=== PATIENT | male | born 1990 | race Caucasian/White ===

== ENCOUNTER 2016-10-03 19:49 | Emergency (ER) | payer MEDICAID, OTHER, SELFPAY ==
[~2016-10-03] VITALS: Ht 180.3 cm; Wt 113.4 kg
[2016-10-03 19:49] VITALS: BP 174/78
[2016-10-03] MEDS ORDERED: PRED20TA PO (20:42)
[2016-10-03] MEDS ORDERED: BENA25TA9 PO (20:42)
[2016-10-03] MEDS ORDERED: diphenhydrAMINE 25 MG CAP PO ONE (20:45)
[2016-10-03] MEDS ORDERED: predniSONE 20 MG TAB PO ONE (20:45)
== END 2016-10-03 21:08 | disposition home or self-care (01) ==
LOC: M ED 21:04
DX: L25.8 Unspecified contact dermatitis due to other agents (principal); Z87.891 Personal history of nicotine dependence

== ENCOUNTER 2017-03-01 14:56 | Emergency (ER) | payer OTHER, SELFPAY ==
[~2017-03-01] VITALS: Ht 180.3 cm; Wt 109.1 kg
[~2017-03-01 14:56] MED LIST: BENA25TA10 PO; PRED20TA PO
[2017-03-01] MEDS ORDERED: NORCO, ANEXSIA 5/325MG TABLET (HYDROcodone/ACETAMINOPHEN) PO ONE (17:00)
--- NOTE | 2017-03-01 17:50 | REPUSA ---
CLINICAL HISTORY: Headache, trauma. TECHNIQUE: Multiple axial brain CT scan sections were obtained from base to vertex without contrast a dministration. COMMENTS: The study shows normal configuration of sella turcica. There are no intra or extra-axial collections. There is no mass effect or midline shift. There is no evidence of hematoma formation. No hydrocephal us is present. No abnormal calcifications are noted. No significant abnormalities are seen either in the posterior fossa or supratentorial compartment. The sinuses and mastoid air cells are patent. IMPRESSION: No evidence of acute intracranial pathology. Thank you for your kind referral of this patient.
[2017-03-01 18:01] VITALS: BP 144/76
== END 2017-03-01 18:07 | disposition home or self-care (01) ==
LOC: M ED 14:56
DX: S06.0X0A Concussion without loss of consciousness, initial encounter (principal); T14.8 Other injury of unspecified body region; T76.11XA Adult physical abuse, suspected, initial encounter; Y04.8XXA Assault by other bodily force, initial encounter; Y92.099 Unspecified place in other non-institutional residence as the place of occurrence of the external cause; Y93.89 Activity, other specified; Y99.9 Unspecified external cause status; R51 Headache

== ENCOUNTER → 2019-02-21 | Outpatient (REF) ==
[2019-02-21 17:14] LABS: RUBELLA IgG QUALITATIVE IMMUNE (IMMUNE)
== END ==
LOC: M LAB 15:46
PROVIDERS: ATTEND Nurse Practitioner Adult Health
DX: Z02.89 Encounter for other administrative examinations (principal)

== ENCOUNTER 2019-04-29 20:18 | Emergency (ER) | payer OTHER, SELFPAY ==
[~2019-04-29] VITALS: Ht 182.9 cm; Wt 105.9 kg
[2019-04-29] MEDS ORDERED: predniSONE 20 MG TAB PO ONE (21:30)
[2019-04-29] MEDS ORDERED: IPRATROPIUM 0.5MG/ALBUTEROL 2.5MG INH SOL UD 3ML (DUONEB)(J7620) NEB ONE (21:30)
[2019-04-29 22:21] LABS: INFLUENZA A AMPLIFICATION NEGATIVE (NEGATIVE); INFLUENZA B AMPLIFICATION NEGATIVE (NEGATIVE)
[2019-04-29] MEDS ORDERED: PRED20TA PO (22:40)
[2019-04-29] MEDS ORDERED: VENTAER INH (22:40)
[2019-04-29] MEDS ORDERED: AZIT-12 PO (22:40)
[2019-04-29] MEDS ORDERED: AZITHROMYCIN 250 MG TAB PO ONE (22:45)
[2019-04-29] MEDS ORDERED: ALBUTEROL 90 MCG/ACT 8GM HFA INHALER INH ONE (22:45)
[2019-04-29 22:55] VITALS: BP 146/82
--- NOTE | 2019-04-30 08:40 | REP ---
REASON: Cough and dyspnea. COMPARISON: None. There is a subtle reticulonodular density in the right lower lobe. The pleural angles are sharp and the heart is not enlarged. The osseous structures are within normal limits. IMPRESSION: Possible early right lower lobe pneumonia. Followup is recommended. Electronically Signed by Aime Alva DO 04/30/2019 09:23 A
== END 2019-04-29 22:56 | disposition home or self-care (01) ==
LOC: M ED 20:18
DX: J20.9 Acute bronchitis, unspecified (principal); R06.02 Shortness of breath; R59.0 Localized enlarged lymph nodes; R07.0 Pain in throat; J45.909 Unspecified asthma, uncomplicated; F17.218 Nicotine dependence, cigarettes, with other nicotine-induced disorders